=== PATIENT | male | born 1970 | race Caucasian/White ===

== ENCOUNTER 2024-03-25 05:55 | Day surgery (SDC) | payer BC ==
[2024-03-23 08:48] VITALS: BP 137/97
[~2024-03-25] VITALS: Ht 193 cm; Wt 131.8 kg
[~2024-03-25 05:55] MED LIST: MIDAZOLAM HCL 5 MG/5 ML VIAL IV PRN; NORCO 10-325 T1 EACH PO; TERBINAFINE HC250 MG PO; fentaNYL citrate 100 MCG/2 ML VIAL IV PRN
[2024-03-25 06:10] VITALS: BP 126/82
[2024-03-25] MEDS ORDERED: LIDOCAINE HCL 1% 5 ML SDV INJ ONE (07:00)
[2024-03-25] MEDS ORDERED: IBLOOD GLUCOSE TEST STRIP 1 EA TEST VI PRN (07:00)
[2024-03-25] MEDS ORDERED: LACTATED RINGER'S 1,000 ML IV SCH (07:00)
[2024-03-25] MEDS ORDERED: propofoL 200 MG/20 ML VIAL ONE (07:16)
[2024-03-25] MEDS ORDERED: LIDOCAINE HCL 2% 5 ML SDV ONE (07:16)
--- NOTE | 2024-03-25 08:22 | NUR ---
03/25/24 0822 Blaine Ascencio 0813: PT ARRIVED TO PACU VIA STRETCHER. TO NOT AROUSABLE. PT ON 2L NC. SATS 94%. REPORT GIVEN FROM GUME HU AND KARTHIK MARCOS. 0849: PT REMAINS NON AROUSABLE AND ON 2L NC WITH SATS IN THE MID 90'S.
[2024-03-25 08:42] VITALS: BP 127/80
--- NOTE | 2024-03-25 09:44 | OR ---
[facility] [address], [place] [address] Signed DATE OF OPERATION: 03/25/2024 SURGEON: Lisa Gregory MD PREOPERATIVE DIAGNOSIS: Screening colonoscopy. POSTOPERATIVE DIAGNOSIS: Unremarkable colonoscopy. PROCEDURE: Colonoscopy without biopsy. ESTIMATED BLOOD LOSS: None. INDICATIONS: Osman is a 53-year-old gentleman, asked to see me for his initial screening colonoscopy. He has no family history of colon cancer or polyps. He has no lower GI complaints. I know Osman from 2018 when I helped him with his gallbladder surgery. He also tells me he has rather significant sleep apnea requiring his CPAP mask. In that regard, he really needs monitored anesthesia care with propofol infusion which worked out very well today. Despite the fact he brought a CPAP mask, he forgot the oxygen tubing and we had to hold his mandible throughout the procedure. In the office, I gave him a brochure on colonoscopy. He understands the nature of the test. There is risk including, but not limited to gas bloating, crampy abdominal pain, bleeding, perforation requiring surgery, and missed diagnosis. We also reviewed the written instructions for the bowel prep line by line. We had gone over his medications together. He understands an adult person has to take him home afterwards. His is with him for his procedure today. He had expressed understanding and wished to proceed. DESCRIPTION OF PROCEDURE: Osman was taken into our endoscopy suite and placed in the left lateral decubitus position. He was given monitored anesthesia care with propofol infusion per our nurse last model maker. He required constant airway management because of his sleep apnea. He also has chronic history of bradycardia with his heart rate in low 50s. He maintained that throughout the procedure. A digital rectal exam was performed and this was unremarkable. He has good sphincter tone. No external hemorrhoids. No masses. He is a large man, I could barely touch the bottom of his prostate gland. It is a little indurated. The adult colonoscope was introduced and advanced under direct visualization Electronically Signed By: LISA GREGORY MD 03/25/24 0944 PATIENT NAME: HOMEROSMAN OPERATIVE REPORT DATE OF : 66 REPORT #: [id number] PHYSICIAN: LISA GREGORY MD PCP: NO PRIMARY CARE PHYSICIAN REPORT IS CONFIDENTIAL AND NOT TO BE RELEASED WITHOUT AUTHORIZATION [facility] [address], [place] [address] Signed of the camera up into the cecum itself. It took just a little extra abdominal compression to get around the hepatic flexure and down into the cecum. Overall, his prep was good, but he certainly could use more prep in the future. On this occasion, he used one-half gallon of polyethylene glycol along with Dulcolax tablets. I think if he use 3/4 or one gallon of the polyethylene glycol he would be well served. We were able to suction out pretty much most of these areas. We could easily see the appendiceal orifice and the ileocecal valve. The scope was then slowly withdrawn. We took several pictures throughout for photodocumentation. There were no polyps. There was no diverticulosis. The rectum was unremarkable. Upon retroflexion of the scope, we saw no pathology above the anal canal. After this, the gas was suctioned out and the colonoscope removed. Osman tolerated the procedure quite well. RECOMMENDATIONS: Osman can follow up in 10 years for repeat screening colonoscopy. He will need monitored anesthesia care as he did today mainly for his severe sleep apnea. He also should use some additional bowel prep as described above. Lisa Gregory MD ALB/MODL /[id number] cc: JAKCI Ga MD Copies: SHEILA NASSAR ANDREW L MD ~ Electronically Signed By: LISA GREGORY MD 03/25/24 0944 PATIENT NAME: OSMAN SINGLETARY OPERATIVE REPORT DATE OF : 66 REPORT #: [id number] PHYSICIAN: LISA GREGORY MD PCP: NO PRIMARY CARE PHYSICIAN REPORT IS CONFIDENTIAL AND NOT TO BE RELEASED WITHOUT AUTHORIZATION
== END 2024-03-25 08:53 | disposition home or self-care (01) ==
LOC: DS 05:55 → OPS 05:55 → DS 07:30 → OPS 08:53
PROVIDERS: ATTEND Colon & Rectal Surgery
PROC: 0DJD8ZZ Inspection of Lower Intestinal Tract, Via Natural or Artificial Opening Endoscopic (ICD-10-PCS; principal; 2024-03-25 07:30)
DX: Z12.11 Encounter for screening for malignant neoplasm of colon (principal); G47.33 Obstructive sleep apnea (adult) (pediatric); F10.90 Alcohol use, unspecified, uncomplicated
CPT/HCPCS: G0121; J2001; J2704; J7121